=== PATIENT | female | born 1955 | race Caucasian/White ===

== ENCOUNTER 2022-01-10 07:56 | Inpatient (IN) ==
--- NOTE | 2022-01-08 10:43 | Anesthesiology Consultation ---
Date of Service January 08, 2022 Assessment & Plan (1) Encounter for pre-operative examination: - cardiology clearance 01/03/22: "...BP borderline, pulse acceptable...lumbar surgery with Dr. Gallagher on 01/10...denies CP, pressure or squeezing sensation. Walks 2 miles daily. Gets winded occasionally if she tries to walk quickly. No orthopnea/PND...12/2019 carotid < 50% stenosis bilaterally...01/2017 holter-NSR, supraventricular ectopy. 12/2016 nuc-LVEF 62%, study WNL...dyspnea on moderate exertion, non limiting, reportedly normal coronaries by cath in 2012. continue risk factor modification...syncope-no further recurrence, monitor...cardiac clearance-with excellent exercise tolerance and a low risk (0.4%) based on aryan criteria. Okay to be cleared from a low cardiac risk for low-intermediate risk surgery..." - COVID screening: Per pipe foreman on 01/02/2022: Travel screen negative, no known COVID-19 positive contacts or current COVID-19 related symptoms in past 2 weeks. To surgeon's discretion if preop COVID testing needed. Chart Review Chart Review: Acceptable Risk for Surgery and Patient NOT seen in Pre Admission Testing History Surgery Operation Date: 01/10/22 09:35 Proposed Procedures p L1-L3 Decompression, T12-L3 Fusion, Spinal Cord Monitoring - Facundo Gallagher, DO Height/Weight Height: 5 ft 1 in Weight: 81.647 kg Allergies Allergy/AdvReac Type Severity Reaction Status Date / Time bee venom protein (honey bee) Allergy Unknown SWELLING Verified 01/02/22 12:18 AT SITE,THROAT SWELLS codeine Allergy Unknown FACE Verified 01/02/22 12:18 SWELLS,SOB gabapentin Allergy Unknown Insomnia Verified 01/02/22 12:18 losartan Allergy Unknown BP TOO Verified 01/02/22 12:18 LOW, LIGHTEDHEAD,DIZZY,PASSED OUT shellfish derived Allergy Unknown FACE Verified 01/02/22 12:18 SWELLS, THROATS GETS TIGHT Medications Home Medications Medication Instructions Recorded Confirmed Last Taken TREXIMET 1 tab PO UD PRN migraines ##0 07/06/15 01/02/22 Unknown VITAMIN B12 3 tab PO QAM ##0 07/06/15 01/02/22 Unknown cholecalciferol (vitamin D3) 25 25 mcg PO QAM 01/02/22 01/02/22 Unknown mcg (1,000 unit) tablet (Vitamin D3) doxycycline monohydrate 100 mg 100 mg PO QAM 01/02/22 01/02/22 Unknown tablet epinephrine 0.3 mg/0.3 mL 0.3 mg IM Q4H PRN Anaphylaxis 01/02/22 01/02/22 Unknown injection, auto-injector eplerenone 25 mg tablet (Inspra) 25 mg PO QAM 01/02/22 01/02/22 Unknown escitalopram oxalate 20 mg tablet 20 mg PO QAM 01/02/22 01/02/22 Unknown esomeprazole magnesium 40 mg 40 mg PO QAM 01/02/22 01/02/22 Unknown capsule,delayed release (Nexium) levocetirizine 5 mg tablet 5 mg PO HS 01/02/22 01/02/22 Unknown multivitamin 1 tab PO QAM 01/02/22 01/02/22 Unknown zinc 25 mg tablet 25 mg PO QAM 01/02/22 01/02/22 Unknown Past Medical History Medical History History of anxiety History of COVID-19 02/2021, home test + swab test at dr's office, not hosp; loss taste/smell, chills, nausea, diarrhea, headache, "chest" cold>resolved-all except taste and smell "comes and goes" Hx of migraines last one 01/01/22 Hx of thrombophlebitis "after my last iv insertion, went the whole way up to my shoulder" Lumbar stenosis Nausea after anesthesia Neurostimulator device in situ advised to bring remote day of surgery Sleep apnea "lost 65lbs and don't seem to have it anymore" Past Surgical History Surgical History History of cardiac cath x3; last one ~10 years ago, [facility], no stents-no findings; f/u dr pack, [facility] History of esophagogastroduodenoscopy (EGD) Hx laparoscopic cholecystectomy Hx of appendectomy Hx of arthroscopy of knee rt/lt. Hx of cataract extraction rt/lt Hx of colonoscopy Hx of hysterectomy lt ovary remains Hx of tonsillectomy Social History Smoking Status: Never smoker Do You Dip or Chew Tobacco: No Hx Alcohol Use: Yes Alcohol type: hard liquor alcohol intake frequency: holidays/special occasions only Hx Substance Use: No substance use type: does not use Lab Results Anesthesia Preop Results Results Anesthesia Widget: WBC 4.74 K/ul (4.8-10.8) L 12/07/21 Hgb 14.2 g/dl (12.0-16.0) 12/07/21 Hct 42.6 % (34.1-44.9) 12/07/21 Plt 185 K/uL (130-400) 12/07/21 Na 138 mmol/L (136-145) 12/07/21 K 4.2 mmol/L (3.5-5.1) 12/07/21 Cl 103 mmol/L (98-107) 12/07/21 CO2 29 mmol/L (21-32) 12/07/21 BUN 20 mg/dl (6-23) 12/07/21 Creat 0.70 mg/dl (0.6-1.2) 12/07/21 Glucose Level 82 mg/dl (70-99(Fasting)) 12/07/21 PT 10.2 Seconds (9.0-12.0) 12/07/21 PTT 25.5 Seconds (21.0-31.0) 12/07/21 INR 1.0 (0.9-1.1) 12/07/21 Urine Color Yellow 12/07/21 Urine Appearance Clear (Clear) 12/07/21 Urine pH 5.5 (4.5-7.5) 12/07/21 Urine Specific [place] 1.015 (1.000-1.030) 12/07/21 Urine Protein Negative (Negative) 12/07/21 Urine Glucose (UA) Negative (Negative) 12/07/21 Urine Ketones Negative (Negative) 12/07/21 Urine Blood Negative (Negative) 12/07/21 Urine Nitrite Negative (Negative) 12/07/21 Urine Bilirubin Negative (Negative) 12/07/21 Urine Urobilinogen Negative (Negative) 12/07/21 Urine Leukocyte Esterase 1+ (Negative) H 12/07/21 Urine WBC (Auto) 1-5 /hpf (0-5) 12/07/21 Urine RBC (Auto) 0-4 /hpf (0-4) 12/07/21 Urine Hyaline Casts (Auto) 0 /lpf (0-5) 12/07/21 Urine Epithelial Cells (Auto) 5-10 /lpf (0-5) H 12/07/21 Urine Bacteria (Auto) Negative (Negative) 12/07/21 Blood Type A Positive 12/07/21 Antibody Screen NEGATIVE 12/07/21 Testing Electrocardiogram Date: 12/07/21 NSR, rate 72 bpm Minimal voltage criteria for LVH, may be normal variant Poor R wave progression, consider anterior CO vs lead placement vs LVH Chest X-Ray Date: 12/07/21 No acute chest disease Echocardiogram Date: 12/24/19 EF 59% Borderline LVH Mild aortic regurgitation, KIARRA 2.5 cm2, mean gradient 3.9 mmHg Mild mitral regurgitation Mild tricuspid regurgitation Grade I diastolic dysfunction
[~2022-01-10 07:56] MED LIST: ACETAMINOPHEN 500 MG TAB PO SCH; CeleBREX 200 MG CAP PO SCH; LR 15ML/HR IV SCH; ceFAZolin 2000MG 2,000 MG/15 ML SYR IV SCH
[2022-01-10] MEDS ORDERED: MIDAZOLAM HCL 1 MG/ML 2ML VIAL ONE (08:12)
[2022-01-10] MEDS ORDERED: fentaNYL citrate 100 MCG/2 ML VIAL ONE (08:13)
[2022-01-10] MEDS ORDERED: PROMETHAZINE HCL 12.5 MG in SODIUM CHLORIDE 0.9% 50 ML IV PRN ×2 (09:24→14:00)
[2022-01-10] MEDS ORDERED: ATROPINE SULFATE 0.1 MG/ML 10ML SYR IV PRN (09:24)
[2022-01-10] MEDS ORDERED: ePHEDrine sulfate 50 MG/ML AMP IV PRN (09:24)
[2022-01-10] MEDS ORDERED: HYDROmorphone INJ 2 MG/ML SYR/VIAL IV PRN (09:24)
[2022-01-10] MEDS ORDERED: ONDANSETRON INJ 2 MG/ML 2 ML VIAL IV PRN ×2 (09:24→14:00)
[2022-01-10] MEDS ORDERED: fentaNYL citrate 100 MCG/2 ML VIAL IV PRN (09:24)
--- NOTE | 2022-01-10 09:47 | History & Physical Bridge Note ---
Date of Service January 10, 2022 History & Physical Bridge Note I have examined the patient, reviewed the History & Physical and in the interval since the performance of the History & Physical I have noted the following changes of clinical significance: no changes noted
[2022-01-10] MEDS ORDERED: BUPIVACAINE/EPINEPHRINE 0.25% 1:200,000 30 ML VIAL ONE (09:49)
[2022-01-10] MEDS ORDERED: ceFAZolin 330 MG/ML 1 GM VIAL ONE (09:49)
--- NOTE | 2022-01-10 09:50 | History & Physical Report ---
Date of Service January 10, 2022 Assessment & Plan (1) Lumbar stenosis with neurogenic claudication: Plan: L1-L3 decompression, T12-L3 fusion linking to old hardware History of Present Illness Chief Complaint: Back and bilateral leg pain Primary Care Provider: Benjy Rothman DO This is a 66-year-old female well-known to me the presents emerged kind status. After failed course of nonoperative care is here for surgical invention. Allergies Allergy/AdvReac Type Severity Reaction Status Date / Time bee venom protein (honey bee) Allergy Unknown SWELLING Verified 01/10/22 08:20 AT SITE,THROAT SWELLS codeine Allergy Unknown FACE Verified 01/10/22 08:20 SWELLS,SOB gabapentin Allergy Unknown Insomnia Verified 01/10/22 08:20 losartan Allergy Unknown BP TOO Verified 01/10/22 08:20 LOW, LIGHTEDHEAD,DIZZY,PASSED OUT shellfish derived Allergy Unknown FACE Verified 01/10/22 08:20 SWELLS, THROATS GETS TIGHT Home Medications Medication Instructions Recorded Confirmed Type TREXIMET 1 tab PO UD PRN migraines ##0 07/06/15 01/10/22 History VITAMIN B12 3 tab PO QAM ##0 07/06/15 01/10/22 History cholecalciferol (vitamin D3) 25 25 mcg PO QAM 01/02/22 01/10/22 History mcg (1,000 unit) tablet (Vitamin D3) doxycycline monohydrate 100 mg 100 mg PO QAM 01/02/22 01/10/22 History tablet epinephrine 0.3 mg/0.3 mL 0.3 mg IM Q4H PRN Anaphylaxis 01/02/22 01/10/22 History injection, auto-injector eplerenone 25 mg tablet (Inspra) 25 mg PO QAM 01/02/22 01/10/22 History escitalopram oxalate 20 mg tablet 20 mg PO QAM 01/02/22 01/10/22 History esomeprazole magnesium 40 mg 40 mg PO QAM 01/02/22 01/10/22 History capsule,delayed release (Nexium) levocetirizine 5 mg tablet 5 mg PO HS 01/02/22 01/10/22 History multivitamin 1 tab PO QAM 01/02/22 01/10/22 History zinc 25 mg tablet 25 mg PO QAM 01/02/22 01/10/22 History Past Med/Surg History Medical History History of anxiety History of COVID-19 02/2021, home test + swab test at dr's office, not hosp; loss taste/smell, chills, nausea, diarrhea, headache, "chest" cold>resolved-all except taste and smell "comes and goes" Hx of migraines last one 01/01/22 Hx of thrombophlebitis "after my last iv insertion, went the whole way up to my shoulder" Lumbar stenosis Nausea after anesthesia Neurostimulator device in situ advised to bring remote day of surgery Sleep apnea "lost 65lbs and don't seem to have it anymore" Surgical History History of cardiac cath x3; last one ~10 years ago, [facility], no stents-no findings; f/u dr pack, [facility] History of esophagogastroduodenoscopy (EGD) Hx laparoscopic cholecystectomy Hx of appendectomy Hx of arthroscopy of knee rt/lt. Hx of cataract extraction rt/lt Hx of colonoscopy Hx of hysterectomy lt ovary remains Hx of tonsillectomy Social History Smoking Status: Never smoker Second Hand Exposure: No; Do You Dip or Chew Tobacco: No; Tobacco Cessation Education Requested by Patient: No Hx Alcohol Use: Yes Alcohol type: hard liquor Hx Substance Use: No Preferred Language: [place] Communication Ability: Effective Supervisor Of Instruction Required: No Beliefs That Will Affect Care: None Current Living Situation: Spouse Other Information That Helps Us Care for You: No Feels Safe at Home: Yes Safety Concerns: Feels Safe At This Time Assistive Devices: Glasses Assistive Devices Comment: reading glasses Physical Exam Physical Exam: Patient is alert and oriented Heart regular in rhythm Lungs clear Results & Data Results & Data ([facility]) Vital Signs (Past 12 Hours) Vital Signs Temp Pulse Resp BP Pulse Ox O2 Del Method 01/10/22 08:17 36.8 C 70 22 161/81 H 96 Room Air
[2022-01-10] MEDS ORDERED: HYDROmorphone INJ 2 MG/ML SYR/VIAL ONE (10:42)
[2022-01-10] MEDS ORDERED: DEXAMETHASONE SOD INJ 4 MG/ML VIAL ONE (10:46)
[2022-01-10] MEDS ORDERED: ePHEDrine sulfate 50 MG/ML SYR ONE (10:46)
[2022-01-10] MEDS ORDERED: NEOSTIGMINE METHYLSULFATE 1 MG/ML 10ML VIAL ONE (10:46)
[2022-01-10] MEDS ORDERED: GLYCOPYRROLATE 0.2 MG/ML VIAL ONE (10:46)
[2022-01-10] MEDS ORDERED: ROCURONIUM BROMIDE 10 MG/ML 5 ML VIAL IV ONE (10:46)
[2022-01-10] MEDS ORDERED: ONDANSETRON INJ 2 MG/ML 2 ML VIAL ONE (10:46)
[2022-01-10] MEDS ORDERED: PROPOFOL IV EMULSION 10 MG/ML 20 ML VIAL IV ONE (10:46)
[2022-01-10] MEDS ORDERED: LIDOCAINE 2% MPF LOCAL 5 ML VIAL INFIL ONE (10:46)
[2022-01-10] MEDS ORDERED: LARYING-O-JET KIT (LTA) ONE (10:46)
[2022-01-10] MEDS ORDERED: PHENYLEPHRINE 100MCG/ML 5ML SYR ONE (10:46)
[2022-01-10] MEDS ORDERED: FLOSEAL HEMOSTATIC MATRIX 10ML TOP ONE (11:56)
--- NOTE | 2022-01-10 12:16 | Operative Report ---
Post Operative Report Pre & Post Diagnosis Operation Date: 01/10/22 09:35 Pre-Op Diagnosis: Lumbar spinal stenosis with neurogenic claudication Post-Op Diagnosis: Same I identified the patient and participated in the time-out.: Yes Procedure Operation Date: 01/10/22 09:35 Actual Procedures #1 lumbar decompression bilateral medial facetectomies and foraminotomies L1-L2 L2-L3. #2 posterior spinal fusion T12-L3. #3 placement posterior segmental instrumentation T12-L2 with connectors. #4 interbody fusion L2-L3 per #5 placement of Spira 8 x 22 mm cage at L2-L3 per #6 placement locally harvested morselized autograft in the posterior gutters. #7 placement of I factor in the interbody space and infuse collagen sponge, master graft in the posterior gutters. Surgeon Facundo Gallagher, DO Transitions Manager Rn Khadijah Enriquez Estimated Blood Loss 150 Findings See Below The patient is 5 foot 1 inches tall weighing over 82 kg with a BMI in excess of 34. The patient's body habitus did contribute to significant technical difficulty required deeper retractors longer instruments in order to perform her procedure. This at least 50% increased operative time. Specimens None Indications This is a 66-year-old female known to the presents with above-mentioned diagnosis after failed course of nonoperative care she is here for surgical invention. Description of Procedure Patient was met with identified informed consent obtained. Patient was then taken to the operative suite underwent ablation placed in a prone position the [place] table top Gavin frame. All bony prominences well-padded eyes inspected to ensure no external pressure placed upon them. This point the thoracolumbar spine was prepped and draped no sterile fashion. Sharp dissection with the assistance of bradycardia was then performed down to and exposing the lamina and transverse processes of T12 L1-L2 and instrumentation L3-L4 bilaterally. I then proceeded to perform a complete laminectomy of L2 partial laminectomy L1 including bilateral medial facetectomies and foraminotomies addressing severe spinal stenosis. Pedicle screws were then placed in T12 L1-L2 bilaterally with assistance of fluoroscopy and by way of a transfemoral approach and right complete discectomy of L to L3 was performed endplates curetted to subcortically bone and an 8 x 22 mm spiral cage with I factor tapped the position. Proper size rods were then placed in by way of connectors attached to the L3-4 lauren and locked into position. The transverse processes of T12 L1-L2 and L3 burred to subcortically bone. Infuse collagen sponge mass graft local autograft was placed in the posterior gutters. 15 round KAYE drain inserted. The incision was then closed with 1 Vicryl the fascia 2-0 Vicryl subcutaneously and 4 Monocryl for final skin closure. Steri-Strip sterile dressings placed. Patient waken taken PACU stable condition. Please note spinal cord monitoring was utilized at the procedure no changes noted. Lastly Khadijah Enriquez was present throughout the surgery and while the patient positioning complex portion of the surgery and fascial closure. I attest to the content of the Intraoperative Record and any orders documented therein. Any exceptions are noted below.
--- NOTE | 2022-01-10 12:54 | Fluoroscopy Report ---
FL lumbar spine 2-3V HISTORY: 66 years-old Female T12-L3 DFI status post fusion of the spine COMPARISON: Fluoroscopic images 08/03/2015 TECHNIQUE: 3 spot fluoroscopic images of the spine were obtained utilizing 25.7 seconds fluoroscopy t abiel FINDINGS: Extensive posterior interbody lauren and screw fusion hardware is noted extending from what appears to b e the T12-S1 levels with L2-L3 and L5-S1 discectomy. There is a few millimeters retrolisthesis L2 on L3. The hardware appears intact. There is suggestion of a surgical drainage catheter. No unexpected o paque foreign bodies. Note that the images were submitted after completion of the surgery. IMPRESSION: Fluoroscopic assistance as above. ACT 112: Negative or not required by law. The above report was generated using voice recognition software. It may contain grammatical, syntax o r spelling errors. Electronically signed by: Allen Andrews M.D. 01/10/2022 12:53 PM
--- NOTE | 2022-01-10 13:49 | Anesthesiology Progress Note ---
Date of Service January 10, 2022 Anesthesia Post Procedure Vital Signs Vital Signs: Temp Pulse Resp BP Pulse Ox O2 Del Method O2 Flow Rate 01/10/22 13:30 97 H 14 119/73 98 Nasal Cannula 2 01/10/22 13:20 94 H 14 124/63 96 Nasal Cannula 2 01/10/22 12:50 93 H 14 112/73 97 Oxymask 5 01/10/22 13:10 92 H 15 131/67 96 Oxymask 2 01/10/22 13:00 94 H 15 122/65 96 Oxymask 2 01/10/22 12:40 99 H 15 106/74 100 Oxymask 5 01/10/22 12:30 36.5 C 96 H 19 116/88 97 Oxymask 5 01/10/22 08:17 36.8 C 70 22 161/81 H 96 Room Air Pain Intensity Back: Pain Intensity: 10
[2022-01-10] MEDS ORDERED: traMADol HCL 50 MG TABLET PO PRN (14:00)
[2022-01-10] MEDS ORDERED: ALUMINUM/MAGNESIUM SUSP 30 ML UDC PO PRN (14:00)
[2022-01-10] MEDS ORDERED: ONDANSETRON 4 MG OD TAB PO PRN (14:00)
[2022-01-10] MEDS ORDERED: LORazepam 0.5 MG TAB PO PRN (14:00)
[2022-01-10] MEDS ORDERED: NALOXONE HCL 0.4 MG/1 ML VIAL/CARP IV PRN (14:00)
[2022-01-10] MEDS ORDERED: diphenhydrAMINE Capsule 25 MG CAP PO PRN (14:00)
[2022-01-10] MEDS ORDERED: FAMOTIDINE 20 MG TAB PO PRN (14:00)
[2022-01-10] MEDS ORDERED: bisacodyL 10 MG SUPP PR PRN (14:00)
[2022-01-10] MEDS ORDERED: ACETAMINOPHEN 1,000 MG/100 ML VIAL IV PRN (14:00)
[2022-01-10] MEDS ORDERED: LORazepam 0.5 MG in SYRINGE 0 ML IV PRN (14:00)
[2022-01-10] MEDS ORDERED: MAGNESIUM HYDROXIDE SUSP 30 ML UDC PO PRN (14:00)
[2022-01-10] MEDS ORDERED: HYDROmorphone INJ 0.5 MG/0.5 ML SYR IV PRN (14:00)
[2022-01-10] MEDS ORDERED: METOCLOPRAMIDE HCL INJ 5 MG/ML 2 ML VIAL IV PRN (14:00)
[2022-01-10] MEDS ORDERED: SOD PHOSPHATE/SOD BIPHOSPHATE ENEMA 132 ML BTL PR PRN (14:00)
[2022-01-10] MEDS ORDERED: hydrOXYzine HCl 25 MG TAB PO PRN (14:00)
[2022-01-10] MEDS: LACTATED RINGER'S 1,000 ML IV SCH (15:05)
[2022-01-10] MEDS: oxyCODONE HCL IR 5 MG TAB (IMMEDIATE RELEASE) PO PRN (15:10)
--- NOTE | 2022-01-10 16:56 | Hospitalist Consultation ---
Date of Consultation January 10, 2022 Assessment & Plan (1) S/P lumbar fusion: -Patient is Post-op day #0 S/P L1-L3 spinal decompression, T12-L3 fusion with Dr. gallagher -No reported complication, EBL of 150 cc -Patient is currently afebrile, hemodynamically stable, and stable on RA -Pain control, antibiotics, DVT PPX, and IV fluids per primary team -Continue to monitor for warning signs such as loss of sensation or weakness in the LE's, saddle anesthesia, loss of bowel or bladder function -AM CBC and BMP already ordered, monitor Hgb, renal function, and electrolytes -Monitor for volume overload while on IV fluids (2) Tachycardia: -Patient noted to tachycardic on exam, appears to be sinus -Likely due to her having 10/10 post-procedural pain at the time of the exam -Will obtain ECG now to ensure she is in sinus rhythm (3) HTN (hypertension): -Patient states she is no longer on antihypertensives since losing weight, currently on Inspra for chronic hypokalemia -Currently hemodynamically stable, continue to monitor (4) Hypokalemia: -Continue Inspra (5) History of anxiety: -Continue Escitalopram (6) Sleep apnea: -States she no longer uses CPAP since her weight loss, continue to monitor (7) GERD (gastroesophageal reflux disease): -Continue famotidine and pantoprazole to prevent stress ulcer -Would avoid NSAIDs to prevent ulcer formation Plan The patient was discussed with Dr. Cosby at the time of the consult Supervising Physician Co-Signing Physician Notes I personally saw and examined the patient. I verified all nunes points and agree with Rohit Chen PA-C with the following exceptions and/or additions: 66 year old female s/p lumbar spinal fusion. No acute concerns or questions from the patient. Medications reviewed. Right lower extremity pain improved. Pain improved from earlier and sinus tachycardia improving troponin I negative. HS1+2, no murmurs, Chest CTAB, Abdo SNT, no sensory deficit of b/l lower extremities History of Present Illness Reason for Consultation: Post-op medical management Requesting Physician: Facundo Gallagher DO Attending Physician: Dr. Milton Cosby History of Present Illness Lexi is a 66 year old female with a PMH significant for anxiety, previous covid + in 2020, migraines, sleep apnea S/P resolution after 65 pound weight loss, and lumbar spinal stenosis with neurogenic claudication who presented to the [facility] OR today for lumbar decompression and lumbar spinal fusion with Dr. Gallagher. Per the post-op report, there were no inta-op complications and EBL was approximately 150 mL. At the time of the exam the patient was sitting in bed in no acute distress with her sitting bedside. She states that her lumbar back pain is currently a 10/10, she received Dilaudid shortly after. Other than her back pain she has no other complaints at this time. She denies recent fevers and chills, denies chest pain and SOB, no nausea, abd pain, saddle anesthesia, loss of bowel/bladder function, leg pain or paresthesias. She states that she is on Inspra due to chronic hyponatremia and Doxycycline for rosacea. Since her significant weight loss she confirms that her blood pressure is much improved and she no longer needs to use her sleep apneas machine. Allergies Allergy/AdvReac Type Severity Reaction Status Date / Time bee venom protein (honey bee) Allergy Unknown SWELLING Verified 01/10/22 08:20 AT SITE,THROAT SWELLS codeine Allergy Unknown FACE Verified 01/10/22 08:20 SWELLS,SOB gabapentin Allergy Unknown Insomnia Verified 01/10/22 08:20 losartan Allergy Unknown BP TOO Verified 01/10/22 08:20 LOW, LIGHTEDHEAD,DIZZY,PASSED OUT shellfish derived Allergy Unknown FACE Verified 01/10/22 08:20 SWELLS, THROATS GETS TIGHT Home Medications Medication Instructions Recorded Confirmed Type TREXIMET 1 tab PO UD PRN migraines ##0 07/06/15 01/10/22 History VITAMIN B12 3 tab PO QAM ##0 07/06/15 01/10/22 History cholecalciferol (vitamin D3) 25 25 mcg PO QAM 01/02/22 01/10/22 History mcg (1,000 unit) tablet (Vitamin D3) doxycycline monohydrate 100 mg 100 mg PO QAM 01/02/22 01/10/22 History tablet epinephrine 0.3 mg/0.3 mL 0.3 mg IM Q4H PRN Anaphylaxis 01/02/22 01/10/22 History injection, auto-injector eplerenone 25 mg tablet (Inspra) 25 mg PO QAM 01/02/22 01/10/22 History escitalopram oxalate 20 mg tablet 20 mg PO QAM 01/02/22 01/10/22 History esomeprazole magnesium 40 mg 40 mg PO QAM 01/02/22 01/10/22 History capsule,delayed release (Nexium) levocetirizine 5 mg tablet 5 mg PO 01/02/22 01/10/22 History multivitamin 1 tab PO QAM 01/02/22 01/10/22 History zinc 25 mg tablet 25 mg PO QAM 01/02/22 01/10/22 History Patient History Medical History (Updated 01/10/22 @ 17:28 by Rohit Chen PA-C) History of anxiety History of COVID-19 02/2021, home test + swab test at dr's office, not hosp; loss taste/smell, chills, nausea, diarrhea, headache, "chest" cold>resolved-all except taste and smell "comes and goes" Hx of migraines last one 01/01/22 Hx of thrombophlebitis "after my last iv insertion, went the whole way up to my shoulder" Lumbar stenosis Nausea after anesthesia Neurostimulator device in situ advised to bring remote day of surgery Sleep apnea "lost 65lbs and don't seem to have it anymore" Surgical History (Updated 01/10/22 @ 16:56 by Rohit Chen PA-C) History of cardiac cath x3; last one ~10 years ago, [facility], no stents-no findings; f/u dr pack, [facility] History of esophagogastroduodenoscopy (EGD) Hx laparoscopic cholecystectomy Hx of appendectomy Hx of arthroscopy of knee rt/lt. Hx of cataract extraction rt/lt Hx of colonoscopy Hx of hysterectomy lt ovary remains Hx of tonsillectomy Social History Smoking Status: Never smoker Second Hand Exposure: No; Do You Dip or Chew Tobacco: No; Tobacco Cessation Education Requested by Patient: No Hx Alcohol Use: Yes Alcohol type: hard liquor Hx Substance Use: No Preferred Language: Mosotho Communication Ability: Effective Core Shaper Top Required: No Beliefs That Will Affect Care: None marital status: Current Living Situation: Spouse Other Information That Helps Us Care for You: No Feels Safe at Home: Yes Safety Concerns: Feels Safe At This Time Assistive Devices: Walker Assistive Devices Comment: reading glasses Review of Systems Review of Systems: Denies current fever, chills, headache, changes in vision, hearing, taste, and smell, chest pain, SOB, cough, abdominal pain, nausea, vomiting, diarrhea, hematemesis, melena, dysuria, hematuria, and recent falls. All systems have been reviewed and are otherwise negative. Physical Exam Physical Exam: Physical Exam: General: In no acute distress, stated age, well-nourished, good hygiene HEENT: Normocephalic, atraumatic, no scleral icterus, pupils around round, symmetrical, and reactive to light, moist mucus membranes, trachea midline, no thyromegaly Chest/Pulm: No respiratory distress, symmetrical chest expansion, clear breath sounds throughout Cardiac: Tachycardic rate, regular rhythm , no murmurs noted Abdomen: Negative for ascites and bruising, normoactive bowel sounds, soft, non-tender to palpation throughout Musculoskeletal: Symmetrical and without signs of acute trauma, upper and lower extremities with full ROM, no atrophy, spasticity, or flaccidity, pain with flexion of the BL hips Extremities: Radial, dorsalis pedis, and posterior tibial pulses are intact and symmetrical, no edema noted in the BL LE's Skin: Warm, dry, no rashes , lesions, or scars noted Neuro: Alert and oriented to person, place, month, year, and president, no focal defects, CN II-XII tested and intact, finger to nose test negative, no tremors noted Psych: No acute distress, calm and cooperative during the exam Results & Data Results & Data ([facility]) Vital Signs (Past 12 Hours) Vital Signs Temp Pulse Resp BP Pulse Ox O2 Del Method O2 Flow Rate 01/10/22 16:38 36.9 C 111 H 20 117/77 91 Room Air 01/10/22 15:52 Nasal Cannula 2 01/10/22 15:40 37.1 C 110 H 20 125/73 97 Room Air 01/10/22 15:11 37.1 C 110 H 18 123/85 98 Nasal Cannula 2 01/10/22 14:43 36.9 C 109 H 18 125/64 96 Nasal Cannula 2 01/10/22 14:30 36.5 C 100 H 13 120/68 100 Nasal Cannula 2 01/10/22 14:00 36.2 C L 103 H 13 109/80 97 Nasal Cannula 2 01/10/22 13:30 97 H 14 119/73 98 Nasal Cannula 2 01/10/22 13:20 94 H 14 124/63 96 Nasal Cannula 2 01/10/22 12:50 93 H 14 112/73 97 Oxymask 5 01/10/22 13:10 92 H 15 131/67 96 Oxymask 2 01/10/22 13:00 94 H 15 122/65 96 Oxymask 2 01/10/22 12:40 99 H 15 106/74 100 Oxymask 5 01/10/22 12:30 36.5 C 96 H 19 116/88 97 Oxymask 5 01/10/22 08:17 36.8 C 70 22 161/81 H 96 Room Air Laboratory Results Abnormal lab results 01/10/22 Range/Units 08:38 Crossmatch See Detail Diagnostic Findings Lumbar Spine X-Ray 01/10/22 09:35 FL lumbar spine 2-3V HISTORY: 66 years-old Female T12-L3 DFI status post fusion of the spine COMPARISON: Fluoroscopic images 08/03/2015 TECHNIQUE: 3 spot fluoroscopic images of the spine were obtained utilizing 25.7 seconds fluoroscopy time FINDINGS: Extensive posterior interbody lauren and screw fusion hardware is noted extending from what appears to be the T12-S1 levels with L2-L3 and L5-S1 discectomy. There is a few millimeters retrolisthesis L2 on L3. The hardware appears intact. There is suggestion of a surgical drainage catheter. No unexpected opaque foreign bodies. Note that the images were submitted after completion of the surgery. IMPRESSION: Fluoroscopic assistance as above. ACT 112: Negative or not required by law. The above report was generated using voice recognition software. It may contain grammatical, syntax or spelling errors. Electronically signed by: Allen Andrews M.D. 01/10/2022 12:53 PM PG Care Time/CCT Total # of Minutes Spent Total Time Spent with Patient: Total time spent is greater than 50% in coordination of care (as documented) at patient's floor/unit and/or counseling patient: [place] [address] Inpt Consult Level 5 Patient Type New Medical Decision Making Moderate Complexity Diagnoses S/P lumbar fusion Z98.1 Tachycardia R00.0 HTN (hypertension) I10 Hypokalemia E87.6 History of anxiety Z86.59 Sleep apnea G47.30 GERD (gastroesophageal reflux disease) K21.9
[2022-01-10] MEDS: HYDROmorphone INJ 1 MG/ML SYRINGE IV PRN ×2 (17:04→21:55)
[2022-01-10] MEDS: ceFAZolin 2000MG 2,000 MG/15 ML SYR IV SCH (18:27)
[2022-01-10] MEDS: DOCUSATE SODIUM/SENNA 50/8.6MG TAB PO SCH (19:51)
[2022-01-11] MEDS: LACTATED RINGER'S 1,000 ML IV SCH (00:38)
[2022-01-11] MEDS: oxyCODONE HCL IR 5 MG TAB (IMMEDIATE RELEASE) PO PRN ×2 (03:37→21:15)
[2022-01-11] MEDS: ceFAZolin 2000MG 2,000 MG/15 ML SYR IV SCH (04:41)
[2022-01-11] MEDS: POLYETHYLENE (MIRALAX) 17 GM PACK PO SCH ×3 (04:42→18:29)
[2022-01-11 07:20] LABS: Basophils # (auto) 0.02 K/uL (0-0.2); Basophils % (auto) 0.3 %; Hematocrit (blood only) 33.8 % (34.1-44.9); Hemoglobin 11.4 g/dl (12.0-16.0); Immature Granulocytes # (auto) 0.03 K/uL (0.00-0.02); Immature Granulocytes % (auto) 0.4 %; Lymphocytes # (auto) 1.36 K/uL (1.2-3.4); Mean Corpuscular Hemoglobin 29.1 pg (25.0-34.0); Mean Corpuscular Hgb Conc 33.7 g/dL (32.0-36.0); Mean Corpuscular Volume 86.2 fL (80.0-100.0); Mean Platelet Volume 9.9 fL (9.4-12.3); Monocytes # (auto) 0.57 K/uL (0.24-0.82); Monocytes % (auto) 7.5 %; Neutrophils # (auto) 5.59 K/uL (1.4-6.5); Neutrophils % (auto) 73.8 %; Platelet Count 147 K/uL (130-400); RDW Coefficient of Variation 12.5 % (11.5-14.5); RDW Standard Deviation 39.5 fL (36.4-46.3); Red Blood Count 3.92 M/uL (3.93-5.22); White Blood Count 7.57 K/ul (4.8-10.8)
[2022-01-11 07:41] LABS: BUN Creatinine Ratio 18.7 (10-20); Calcium 8.5 mg/dl (8.5-10.1); Est GFR (African American) 95.6 ml/min; Est GFR (Non-African American) 82.5 ml/min; Potassium 3.8 mmol/L (3.5-5.1)
[2022-01-11] MEDS: HYDROmorphone INJ 1 MG/ML SYRINGE IV PRN ×4 (07:41→18:25)
--- NOTE | 2022-01-11 08:13 | Electrocardiogram Report ---
Test Reason : Blood Pressure : / mmHG Vent. Rate : 113 BPM Atrial Rate : 113 BPM P-R Int : 178 ms QRS Dur : 080 ms QT Int : 292 ms P-R-T Axes : 042 002 012 degrees QTc Int : 400 ms Sinus tachycardia Inferior infarct , age undetermined Anterolateral infarct (cited on or before 10-JAN-2022) Abnormal ECG When compared with ECG of 07-DEC-2021 11:08, Vent. rate has increased BY 41 BPM Inferior infarct is now Present Nonspecific T wave abnormality now evident in Inferior leads Nonspecific T wave abnormality now evident in Anterolateral leads Confirmed by Papo Das ([id number]) on 01/11/2022 8:13:43 AM Referred By: Facundo Gallagher Confirmed By:Evgeny Das
--- NOTE | 2022-01-11 08:31 | Orthopedic Progress Note ---
Date of Service January 11, 2022 Assessment & Plan (1) Lumbar stenosis: Plan: At this time initiate physical therapy monitor her KAYE output hopefully discharge home in the next few days. Admission and Anticipated Discharge Date Admission Date: January 10, 2022 Subjective Back pain controlled leg pain markedly improved Physical Exam Physical Exam: Patient is in bed at this time. She is alert and oriented. Is excellent strength testing. Appears comfortable. Results & Data ([facility]) Vital Signs (Past 12 Hours) Vital Signs Temp Pulse Resp BP Pulse Ox O2 Del Method 01/11/22 07:15 37.3 C 78 17 120/68 96 Room Air 01/11/22 03:31 37.2 C 87 18 125/74 96 Room Air 01/10/22 22:19 36.7 C 110 H 18 144/74 H 95 Room Air
[2022-01-11] MEDS: dexAMETHasone 6 MG in SYRINGE 0 ML IV SCH (08:54)
[2022-01-11] MEDS: PANTOprazole 40 MG TAB PO SCH (08:57)
--- NOTE | 2022-01-11 08:57 | Hospitalist Progress Note ---
Date of Service January 11, 2022 Assessment & Plan (1) S/P lumbar fusion: Plan: -S/P L1-L3 spinal decompression and T12-L3 fusion on 01/[address] Gallagher. -Pain control, SCDs for DVT prophylaxis per primary team. -Continue physical therapy while admitted with eventual transition to home with self-care. (2) Acute blood loss anemia: Plan: -EBL of 150cc during surgery on 01/10. -Hgb 11.4 today, expected in setting of surgery. Repeat CBC in AM. -Patient is not hemodynamically unstable. (3) Tachycardia: Plan: -Resolved. -Likely due to her having 10/10 post-procedural pain when tachycardic. -EKG: Evidence of inferior infarct on EKG as compared to EKG on 12/07/2021. We will repeat EKG and do echocardiogram in the morning. (4) HTN (hypertension): Plan: -Patient states she is no longer on antihypertensives since losing weight, currently on Inspra for chronic hypokalemia. -BP has been normotensive for the most part, continue to monitor. PCP follow-up if continues to have elevated BPs. (5) Hypokalemia: Plan: -Continue Inspra. (6) History of anxiety: Plan: -Continue Escitalopram. (7) Sleep apnea: Plan: -States she no longer uses CPAP since her weight loss. (8) GERD (gastroesophageal reflux disease): Plan: -Continue famotidine and pantoprazole. Plan CODE STATUS: Full code FEN: Regular diet DVT prophylaxis: SCDs and ambulate on demand Disposition: Med/Surg Admission and Anticipated Discharge Date Admission Date: January 10, 2022 Subjective Patient without any acute events overnight. Patient reports back pain but is improved with as needed medications. The pain is not such that she is not interested in physical therapy. Review of Systems Constitutional: no fever and no chills Respiratory: no cough and no dyspnea Cardiovascular: no chest pain and no palpitations Gastrointestinal: no abdominal pain, no nausea and no vomiting Physical Exam Constitutional: WD/WN, vitals as above Respiratory: normal respiratory effort, lungs clear to auscultation Cardiovascular: RRR, no murmur, no edema Gastrointestinal (Abdomen): normal bowel sounds, soft, nontender, no hepatosplenomegaly Skin: no rashes, warm and dry (Surgical site with large bandage, no drainage, no erythema surrounding) Psychiatric: A+Ox3, euthymic affect Results & Data Results & Data ([facility]) Vital Signs (Past 12 Hours) Vital Signs Temp Pulse Resp BP Pulse Ox O2 Del Method 01/11/22 07:15 37.3 C 78 17 120/68 96 Room Air 01/11/22 03:31 37.2 C 87 18 125/74 96 Room Air 01/10/22 22:19 36.7 C 110 H 18 144/74 H 95 Room Air PG Care Time/CCT Total # of Minutes Spent Total Time Spent with Patient: Total time spent is greater than 50% in coordination of care (as documented) at patient's floor/unit and/or counseling patient: Coding Level of Care Code 99259 Subseq Hosp Care Lvl 3 Diagnoses S/P lumbar fusion Z98.1 Acute blood loss anemia D62 Tachycardia R00.0 HTN (hypertension) I10 Hypokalemia E87.6 History of anxiety Z86.59 Sleep apnea G47.30 GERD (gastroesophageal reflux disease) K21.9
[2022-01-11] MEDS: MULTIVITAMIN TAB PO SCH (08:58)
[2022-01-11] MEDS: CHOLECALCIFEROL 1,000 UNITS 25 MCG TAB PO SCH (08:58)
[2022-01-11] MEDS: DOXYCYCLINE HYCLATE 100 MG CAP PO SCH (08:58)
[2022-01-11] MEDS: ESCITALOPRAM OXALATE 20 MG TAB PO SCH (08:59)
[2022-01-11] MEDS ORDERED: ELETRIPTAN HYDROBROMIDE 40 MG PO PRN (15:04)
[2022-01-11] MEDS: DOCUSATE SODIUM/SENNA 50/8.6MG TAB PO SCH (21:14)
[2022-01-11] MEDS: ACETAMINOPHEN 500 MG TAB PO PRN (21:15)
[2022-01-11] MEDS: LEVOCETIRIZINE DIHYDROCHLORIDE 5 MG PO SCH (21:16)
[2022-01-12] MEDS: POLYETHYLENE (MIRALAX) 17 GM PACK PO SCH ×5 (01:42→23:32)
[2022-01-12] MEDS: oxyCODONE HCL IR 5 MG TAB (IMMEDIATE RELEASE) PO PRN ×5 (04:20→23:32)
[2022-01-12 06:24] LABS: Hematocrit (blood only) 34.6 % (34.1-44.9); Hemoglobin 11.7 g/dl (12.0-16.0); Mean Corpuscular Hemoglobin 29.7 pg (25.0-34.0); Mean Corpuscular Hgb Conc 33.8 g/dL (32.0-36.0); Mean Corpuscular Volume 87.8 fL (80.0-100.0); Platelet Count 130 K/uL (130-400); RDW Coefficient of Variation 12.7 % (11.5-14.5); RDW Standard Deviation 40.5 fL (36.4-46.3); Red Blood Count 3.94 M/uL (3.93-5.22)
--- NOTE | 2022-01-12 08:02 | Hospitalist Progress Note ---
Date of Service January 12, 2022 Assessment & Plan (1) S/P lumbar fusion: Plan: -S/P L1-L3 spinal decompression and T12-L3 fusion on 01/[address] Gallagher. -Pain control, SCDs for DVT prophylaxis per primary team. -Continue physical therapy while admitted with eventual transition to home with self-care. (2) Acute blood loss anemia: Plan: -EBL of 150cc during surgery on 01/10. -Hgb 11.7 today, stable and expected in setting of recent surgery. -Patient is hemodynamically stable. (3) Tachycardia: Plan: -Resolved. -Likely due to her having 10/10 post-procedural pain when tachycardic. -EKG: Evidence of inferior infarct on EKG as compared to EKG on 12/07/2021. Repeat EKG non-tachycardic without ST/T wave abnormalities. -Echocardiogram without wall motion abnormalities, showed Grade 1 diastolic dysfunction. (4) HTN (hypertension): Plan: -Patient states she is no longer on antihypertensives since losing weight, currently on Inspra for chronic hypokalemia. -BP has been normotensive for the most part, continue to monitor. PCP follow-up if continues to have elevated BPs. (5) Hypokalemia: Plan: -Continue Inspra. (6) History of anxiety: Plan: -Continue Escitalopram. (7) Sleep apnea: Plan: -States she no longer uses CPAP since her weight loss. (8) GERD (gastroesophageal reflux disease): Plan: -Continue famotidine and pantoprazole. Plan Hospitalist service will sign off at this time. Please feel free to reach out with any acute changes or questions. Admission and Anticipated Discharge Date Admission Date: January 10, 2022 Subjective Patient without any acute events overnight. Patient has been walking to and from bathroom to bed with some pain but able to do so with walker. Anticipated discharge home tomorrow per Dr. Gallagher. Review of Systems Constitutional: no fever and no chills Respiratory: no cough and no dyspnea Cardiovascular: no chest pain and no palpitations Gastrointestinal: no abdominal pain, no nausea and no vomiting Physical Exam Constitutional: WD/WN, vitals as above Respiratory: normal respiratory effort, lungs clear to auscultation Cardiovascular: RRR, no murmur, no edema Gastrointestinal (Abdomen): normal bowel sounds, soft, nontender, no hepatosplenomegaly Skin: no rashes, warm and dry (Surgical site with large bandage, no drainage, no erythema surrounding) Psychiatric: A+Ox3, euthymic affect Results & Data Results & Data ([facility]) Vital Signs (Past 12 Hours) Vital Signs Temp Pulse Resp BP Pulse Ox O2 Del Method 01/12/22 07:29 37.1 C 71 18 122/71 91 Room Air 01/11/22 21:08 37.2 C 76 18 168/71 H 98 PG Care Time/CCT Total # of Minutes Spent Total Time Spent with Patient: Total time spent is greater than 50% in coordination of care (as documented) at patient's floor/unit and/or counseling patient: Coding Level of Care Code 97003 Subseq Hosp Care Lvl 3 Diagnoses S/P lumbar fusion Z98.1 Acute blood loss anemia D62 Tachycardia R00.0 HTN (hypertension) I10 Hypokalemia E87.6 History of anxiety Z86.59 Sleep apnea G47.30 GERD (gastroesophageal reflux disease) K21.9
[2022-01-12] MEDS: HYDROmorphone INJ 1 MG/ML SYRINGE IV PRN (08:15)
[2022-01-12] MEDS: CHOLECALCIFEROL 1,000 UNITS 25 MCG TAB PO SCH (08:21)
[2022-01-12] MEDS: dexAMETHasone 6 MG in SYRINGE 0 ML IV SCH (08:21)
[2022-01-12] MEDS: ESCITALOPRAM OXALATE 20 MG TAB PO SCH (08:21)
[2022-01-12] MEDS: MULTIVITAMIN TAB PO SCH (08:21)
[2022-01-12] MEDS: PANTOprazole 40 MG TAB PO SCH (08:21)
[2022-01-12] MEDS: EPLERENONE 25 MG PO SCH (08:22)
[2022-01-12] MEDS: ACETAMINOPHEN 500 MG TAB PO PRN ×2 (08:54→17:11)
[2022-01-12] MEDS: DOXYCYCLINE HYCLATE 100 MG CAP PO SCH (09:05)
--- NOTE | 2022-01-12 09:17 | Orthopedic Progress Note ---
Date of Service January 12, 2022 Assessment & Plan (1) Lumbar stenosis with neurogenic claudication: Plan: This time we will continue physical therapy monitor her KAYE output anticipate discharge home tomorrow. Admission and Anticipated Discharge Date Admission Date: January 10, 2022 Subjective Back pain controlled leg symptoms markedly improved Physical Exam Physical Exam: Patient is in the chair at the bedside. Appears comfortable. Injections into testing. Results & Data ([facility]) Vital Signs (Past 12 Hours) Vital Signs Temp Pulse Resp BP Pulse Ox O2 Del Method 01/12/22 07:29 37.1 C 71 18 122/71 91 Room Air
--- NOTE | 2022-01-12 12:41 | XCELERA ---
[id number]
--- NOTE | 2022-01-12 13:40 | Electrocardiogram Report ---
Test Reason : Blood Pressure : / mmHG Vent. Rate : 072 BPM Atrial Rate : 072 BPM P-R Int : 154 ms QRS Dur : 078 ms QT Int : 382 ms P-R-T Axes : 028 022 012 degrees QTc Int : 418 ms Normal sinus rhythm Normal ECG When compared with ECG of 10-JAN-2022 18:02, Vent. rate has decreased BY 41 BPM Criteria for Anterior infarct are no longer Present Criteria for Anterolateral infarct are no longer Present Nonspecific T wave abnormality, improved in Inferior leads Nonspecific T wave abnormality no longer evident in Anterior leads Confirmed by Papo Das ([id number]) on 01/12/2022 1:40:29 PM Referred By: Facundo Gallagher Confirmed By:Evgeny Das
[2022-01-12] MEDS: DOCUSATE SODIUM/SENNA 50/8.6MG TAB PO SCH (20:52)
[2022-01-12] MEDS: LEVOCETIRIZINE DIHYDROCHLORIDE 5 MG PO SCH (20:53)
[2022-01-13] MEDS: ACETAMINOPHEN 500 MG TAB PO PRN ×2 (01:01→09:03)
[2022-01-13] MEDS: oxyCODONE HCL IR 5 MG TAB (IMMEDIATE RELEASE) PO PRN ×2 (03:32→09:04)
[2022-01-13] MEDS: POLYETHYLENE (MIRALAX) 17 GM PACK PO SCH (05:32)
[2022-01-13] MEDS: PANTOprazole 40 MG TAB PO SCH (08:45)
[2022-01-13] MEDS: ESCITALOPRAM OXALATE 20 MG TAB PO SCH (08:45)
[2022-01-13] MEDS: MULTIVITAMIN TAB PO SCH (08:45)
[2022-01-13] MEDS: DOXYCYCLINE HYCLATE 100 MG CAP PO SCH (08:46)
[2022-01-13] MEDS: CHOLECALCIFEROL 1,000 UNITS 25 MCG TAB PO SCH (08:46)
[2022-01-13] MEDS: EPLERENONE 25 MG PO SCH (08:55)
[2022-01-13] MEDS: dexAMETHasone 6 MG in SYRINGE 0 ML IV SCH (09:10)
[2022-01-13] MEDS ORDERED: bisacodyL 10 MG SUPP PR STA (10:17)
--- NOTE | 2022-01-13 10:19 | Discharge Summary ---
Date of Service January 13, 2022 Admission HPI Per Admitting Provider This is a 66-year-old female well-known to me the presents emerged kind status. After failed course of nonoperative care is here for surgical invention. Principal Diagnosis Lumbar spinal stenosis with neurogenic claudication Discharge Data Allergies Allergy/AdvReac Type Severity Reaction Status Date / Time bee venom protein (honey bee) Allergy Unknown SWELLING Verified 01/10/22 08:20 AT SITE,THROAT SWELLS codeine Allergy Unknown FACE Verified 01/10/22 08:20 SWELLS,SOB gabapentin Allergy Unknown Insomnia Verified 01/10/22 08:20 losartan Allergy Unknown BP TOO Verified 01/10/22 08:20 LOW, LIGHTEDHEAD,DIZZY,PASSED OUT shellfish derived Allergy Unknown FACE Verified 01/10/22 08:20 SWELLS, THROATS GETS TIGHT Consultations 01/10/22 14:00 Consult Hospitalist Routine Procedures Performed Operation Date: 01/10/22 09:35 Actual Procedures p L1-L3 Decompression, T12-L3 Fusion, Spinal Cord Monitoring, Application of Infuse, Interbody L2-L3(Not Applicable) - Facundo Gallagher DO Ordered Studies 01/10/22 09:35 FL lumbar spine 2-3V Routine Hospital Course (1) Lumbar stenosis: Patient underwent lumbar decompression fusion tolerated this well was taken to the orthopedic floor postoperatively postop day 1 she was up and ambulating progressed to postop day #2 on postop day 3 pain was well controlled strength testing KAYE drain decreased appropriate. Safely discharge home. Discharge orders instructions from the chart for further view. Total Time Total Time Spent Total Time Spent (In Minutes): 20 minutes Discharge Plan Discharge Items Patient Disposition: Home - Self-Care Reason For Visit: POST OP Discharge Diagnosis: Lumbar spinal stenosis with neurogenic claudication Activity: As commented below Non-emergency contact: Primary Care Provider Call non-emergency contact if: you have any medication questions Follow-up/Referrals: Benjy Rothman DO [Primary Care Provider] - Diet: Regular Addtl Attending Provider Instructions: ACTIVITY RECOMMENDATIONS: SELF CARE INSTRUCTIONS AFTER THORACIC/LUMBAR FUSIONS 1. You may walk to your tolerance. It is good exercise for your legs and back. Expect some back and intermittent leg aches and pains. 2. You may perform "counter-top" level activities (make a sandwich, slim with a project, etc.). 3. No bending or lifting of more than 10 pounds or back twisting of any nature (roll like a log when turning in bed). 4. You may ride in a car for 20-30 minutes at a time. No driving until after your first visit with your doctor. 5. Frequent changes of position and restricting sitting to 30 minutes at a time will help limit the amount of back spasms and stiffness you may experience. 6. You may discontinue the use of ambulatory aids (cane, crutches, etc.) once your strength and confidence allow. 7. You may solar energy system installer the shower and let water strike your incision when you arrive home at least once daily. Do not take a tub bath, sit in a hot tub or go into a swimming pool until after your first recheck in the office. SPECIAL CARE INSTRUCTIONS: VERY IMPORTANT TO READ AND REVIEW A. Your surgical incision has been closed with a cosmetic suture under the skin that will dissolve in about 6 weeks. In 14 days, you can use a pair of clean scissors and cut the suture that is left outside of the skin at the ends of your incision. 1. The small skin tapes can be removed 7 days after surgery if they have not fallen off by that point. 2. You may keep the wound open to air as much as possible to promote healing after post-op day number 5 unless told otherwise by your doctor. 3. If you think the wound looks like it is becoming infected (redness or worsening drainage) and/or you are experiencing fever, chill or worsening back pain and muscle spasms, contact the office so that we may evaluate you as soon as possible. B. Complications are uncommon, but please contact us if you have any signs or symptoms of: 1. wound infection (fever higher than 102.5 degrees F, redness, separation of wound, drainage, or increasing pain from the incision) 2. blood clots in legs (pain, swelling, redness and warmth in legs) 3. urinary tract infection (fever higher than 102.5 degrees F, burning upon urination or increased frequency of urination) 4. nerve problems (inability to walk on your toes or heels, numbness, loss of bowel or bladder control) 5. any other symptoms that concern you C. Please call the office at if you have any concerns or questions about your operation or recovery. D. No smoking! Smoking drastically decreases the chance of a solid fusion. E. Do not take any anti-inflammatory medications (Indocin, Advil, Motrin, Aspirin, Naprosyn, etc.) as these may inhibit the chance of a solid fusion. Tylenol is okay to take for pain. MANAGING PAIN AFTER SPINAL SURGERY 1. Narcotic medication is intended for short-term use and will be provided for surgical pain. Surgical pain usually lasts for a period of 4-6 weeks. Narcotic medication includes Percocet, Vicodin, Darvocet, Tylenol #3 or Lortab. 2. Longer-term pain is more appropriately treated with non-narcotic medication such as Tylenol ES. 3. Muscle spasm is not appropriately treated with narcotics. Muscle relaxers such as Soma, Flexeril or Skelaxin can be used along with Tylenol ES. 4. Remember that we all live with some "aches and pains". This is not unusual or uncommon after an injury or as we get older. a. Back pain is expected and may include muscle spasms for 4 to 6 weeks after surgery. The pain should gradually improve. If the pain worsens for no apparent reason, please contact the office. b. Intermittent leg pain may also be experienced and should not be concerned about unless it worsens for no apparent reason. If so, please contact the office. 5. We will provide appropriate medication within the normal guidelines of their prescribed use. We will also be very cautious and aware of potential abuse and extended duration of patients' medication needs. a. Pain medications are for your comfort and to assist with sleep and rest so that the tissue can heal. They are not provided in order to return to normal activity and should not be used through the day. To do so or worsening pain at night can result from ongoing tissue damage and development of tolerance to the prescribed medicine. 6. Please allow 2-3 days to process refills. Prescriptions will not be mailed but must be picked up at the office. FOLLOW UP VISIT: Keep your scheduled follow-up appointment. Any questions, please call the office at . Addtl [employer] Provider Instructions: EKG normal without fast heart rate Echocardiogram showed grade 1 diastolic dysfunction, please follow up with PCP but this does not change your medical care and no medications are needed for this. Try to avoid high salt foods due to this finding. BP under relatively good control without need for medications. Please follow up with PCP regarding continued blood pressure control. None of your chronic medications were changed this hospitalization. Pending Studies at Discharge: No Stand-Alone Forms: [facility], Smoking Cessation Medications and DC Order Prescriptions: New oxycodone 5 mg tablet 5 mg PO Q6H PRN (Reason: pain, severe) Qty: 30 0RF tramadol 50 mg tablet 50 mg PO Q6H PRN (Reason: pain, moderate) Qty: 30 0RF Continued TREXIMET 1 tab PO UD PRN (Reason: migraines) Qty: 0 Label Comments: DOSE-85/500 MG VITAMIN B12 3 tab PO QAM Qty: 0 esomeprazole magnesium [Nexium] 40 mg Capsule,Delayed Release(Dr/Ec) 40 mg PO QAM zinc 25 mg Tablet 25 mg PO QAM eplerenone [Inspra] 25 mg Tablet 25 mg PO QAM multivitamin Tablet 1 tab PO QAM doxycycline monohydrate 100 mg Tablet 100 mg PO QAM epinephrine 0.3 mg/0.3 mL Auto-Injector 0.3 mg IM Q4H PRN (Reason: Anaphylaxis) escitalopram oxalate 20 mg Tablet 20 mg PO QAM cholecalciferol (vitamin D3) [Vitamin D3] 25 mcg (1,000 unit) Tablet 25 mcg PO QAM levocetirizine 5 mg Tablet 5 mg PO HS Discharge Orders: Discharge Order (Routine); Ordered 01/13/22 Ordered By: Facundo Gallagher Admission Data Admit Date/Time: 01/10/22 12:20 Attending Provider: Facundo Gallagher Admit Provider: Facundo Gallagher Primary Care Provider: Benjy Rothman Other Providers: Milton Cardenas
== END 2022-01-13 11:55 | disposition home or self-care (01) | DRG 454 ==
LOC: ASU 07:56 → PACUINP 12:20 → 3N 14:48